=== PATIENT | female | born 1985 | race American Indian/Alaskan Native ===

== ENCOUNTER 2021-04-16 21:05 | Emergency (ER) | payer MEDICAID ==
[2021-04-16] MEDS ORDERED: ONDANSETRON 4 MG/2 ML INJ IV ONE (21:33)
[2021-04-16] MEDS ORDERED: METOCLOPRAMIDE 10 MG/2 ML INJ IV ONE (21:33)
[2021-04-16] MEDS ORDERED: SODIUM CHLORIDE 0.9% 1000 ML 1,000 ML IV ONE (21:33)
--- NOTE | 2021-04-16 21:37 | Emergency Department Report ---
HPI - General Chief Complaint: Nausea/Vomiting/Diarrhea Time Seen by Provider: 04/16/21 21:26 - [facility] HPI: Room 21 The patient is a 36-year-old female present with a chief complaint of nausea vomiting. Patient has a history of breast CA states she undergoes chemotherapy last received at approximate 2 months ago. Patient states over the past 6 hours she has had nausea and dizziness. Patient states she has had several bouts of this in the past and was prescribed Zofran by her cancer doctor. Patient states she took the Zofran but does not believe she was able to keep it down. Patient states anytime she tries to drink or eat anything it comes right back up. Patient denies diarrhea or history of fever. Patient denies any other complaints except for feeling lightheaded ED Past Medical Hx - Past Medical History Previous Medical History?: Yes Hx of Cancer: Yes (Breast) Additional medical history: autoimmune dz, brain tumor, brain aneurysm - Surgical History Past Surgical History?: No Hx Appendectomy: Yes Additional Surgical History: Hysteroscopy - Family History Family history: no significant - Social History Smoking Status: Never Smoker Substance Use Type: Alcohol (Occasional), Marijuana - Medications Home Medications: Home Medications Medication Instructions Recorded Confirmed Last Taken Type Metoclopramide [Reglan] 10 mg PO TID PRN #30 tab 04/16/21 Unknown Rx Ondansetron [Zofran ODT TAB] 8 mg PO Q8HR #20 tab.rapdis 04/16/21 Unknown Rx Promethazine [Phenergan] 25 mg AK Q6HR PRN #5 supp.rect 04/16/21 Unknown Rx ED Review of Systems ROS: Stated complaint: NAUSEA/EMESIS/CANCER PATIENT Other details as noted in HPI Constitutional: denies: fever Eyes: denies: eye pain ENT: denies: throat pain Respiratory: no symptoms reported Cardiovascular: denies: chest pain Endocrine: no symptoms reported Gastrointestinal: nausea, vomiting. denies: diarrhea Genitourinary: denies: dysuria Musculoskeletal: denies: back pain Neurological: denies: headache Physical Exam - Physical Exam Vital Signs: Vital Signs 04/16/21 21:09 Temperature 98.3 F Pulse Rate 72 Respiratory 20 Rate Blood Pressure 129/67 O2 Sat by Pulse 95 Oximetry Physical Exam: GENERAL: The patient is well-developed well-nourished female lying on stretcher not appearing to be in acute distress. [] HEENT: Normocephalic. Atraumatic. Extraocular motions are intact. Patient has moist mucous membranes. NECK: Supple. No meningitic signs are noted. Trachea midline CHEST/LUNGS: Clear to auscultation. There is no respiratory distress noted. HEART/CARDIOVASCULAR: Regular. There is no tachycardia. There is no gallop rub or murmur. ABDOMEN: Abdomen is soft, nontender. Patient has normal bowel sounds. There is no abdominal distention. SKIN: There is no rash. There is no edema. There is no diaphoresis. NEURO: The patient is awake, alert, and oriented. The patient is cooperative. The patient has no focal neurologic deficits. The patient has normal speech. GCS 15 MUSCULOSKELETAL: There is no evidence of acute injury. ED Course Vital Signs 04/16/21 21:09 Temperature 98.3 F Pulse Rate 72 Respiratory 20 Rate Blood Pressure 129/67 O2 Sat by Pulse 95 Oximetry - Reevaluation(s) Reevaluation #1: 04/16/21 22:38 P.o. challenge given Reevaluation #2: 04/16/21 23:17 Patient tolerated p.o. well. Patient requesting to go home ED Medical Decision Making - Lab Data Result diagrams: 04/16/21 21:36 04/16/21 21:36 - Medical Decision Making Patient advised to take Zofran every 8 hours for the next 24 hours for this is nauseous and not to make sure the medication stays in her system. - Differential Diagnosis Nausea vomiting, UTI, small bowel obstruction Critical care attestation.: If time is entered above; I have spent that time in minutes in the direct care of this critically ill patient, excluding procedure time. ED Disposition Clinical Impression: Nausea & vomiting Disposition: DC-01 TO HOME OR SELFCARE Is pt being admited?: No Does the pt Need Aspirin: No Condition: Stable Instructions: Nausea and Vomiting, Adult Additional Instructions: Return to the emergency department should you develop worsening symptoms, inability to tolerate food or liquids, high fever or any other concerns Prescriptions: Promethazine [Phenergan] 25 mg AK Q6HR PRN #5 supp.rect PRN Reason: Vomiting Metoclopramide [Reglan] 10 mg PO TID PRN #30 tab PRN Reason: Nausea Ondansetron [Zofran ODT TAB] 8 mg PO Q8HR #20 tab.rapdis Referrals: PRIMARY CARE, [Primary Care Provider] - 3-5 Days Time of Disposition: 23:20
[2021-04-16 21:45] LABS: Basophils # (Auto) 0.1 K/mm3 (0.0-0.1); Basophils % (Auto) 0.6 % (0.0-1.8); Eosinophils % (Auto) 0.2 % (0.0-4.3); Hematocrit 36.9 % (30.3-42.9); Hemoglobin 12.6 gm/dl (10.1-14.3); Lymphocytes # (Auto) 2.5 K/mm3 (1.2-5.4); Lymphocytes % (Auto) 23.2 % (13.4-35.0); Mean Corpuscular HGB Conc 34 % (30-34); Mean Corpuscular Volume 93 fl (79-97); Monocytes # (Auto) 0.7 K/mm3 (0.0-0.8); Monocytes % (Auto) 6.2 % (0.0-7.3); Platelet Count 194 K/mm3 (140-440); Red Blood Count 3.98 M/mm3 (3.65-5.03); Red Cell Distribution Width 14.5 % (13.2-15.2)
[2021-04-16 22:07] LABS: Alanine Aminotransferase 19 units/L (7-56); Albumin 4.4 g/dL (3.9-5); Blood Urea Nitrogen 14 mg/dL (7-17); Hemolysis Index 3
[2021-04-16 22:12] LABS: BUN/Creatinine Ratio 20
[2021-04-16 22:37] LABS: Bacteria,Urine 1+ /HPF (Negative); Bilirubin,Urine NEG (Negative); Blood,Urine NEG (Negative); Color,Urine Straw (Yellow); Hyaline Casts,Urine 1 /LPF; Mucus,Urine FEW /HPF; Protein,Urine <15 mg/dL mg/dL (Negative); Urobilinogen,Urine < 2.0 mg/dL (<2.0)
[2021-04-16 23:51] VITALS: BP 110/71
== END 2021-04-16 23:51 | disposition home or self-care (01) ==
LOC: ED 21:05
DX: R11.2 Nausea with vomiting, unspecified (principal); R42 Dizziness and giddiness; F12.10 Cannabis abuse, uncomplicated; Z90.49 Acquired absence of other specified parts of digestive tract; Z98.890 Other specified postprocedural states; Z79.899 Other long term (current) drug therapy; Z88.8 Allergy status to other drugs, medicaments and biological substances
CPT/HCPCS: 36415; 80053; 81001; 83690; 84703; 85025; 96361; 96374; 96375; 99283; J2405; J2765; J7030